=== PATIENT | female | born 1995 | race Caucasian/White ===

== ENCOUNTER 2016-11-26 15:55 | Emergency (ER) | payer OTHER, BC ==
[~2016-11-26] VITALS: Ht 165.1 cm; Wt 74.8 kg
[~2016-11-26 15:55] MED LIST: CELEXA40 MG PO; SYNTHROID50 MCG PO; SYNTHROID75 MCG PO; TRI-SPRINTEC T1 EACH PO; birth control
== END 2016-11-26 16:30 | disposition short-term general hospital (02) ==
LOC: ER 15:55
PROC: 0HQ0XZZ Repair Scalp Skin, External Approach (ICD-10-PCS; principal; 2016-11-26)
DX: S01.01XA Laceration without foreign body of scalp, initial encounter (principal); Z91.048 Other nonmedicinal substance allergy status; W22.8XXA Striking against or struck by other objects, initial encounter; Y93.89 Activity, other specified; Y99.8 Other external cause status